=== PATIENT | male | born 1965 | race Caucasian/White ===

== ENCOUNTER 2016-06-20 23:35 | Emergency (ER) | payer OTHER ==
--- NOTE | 2016-07-01 20:32 | ER ---
ADMIT: 06/20/2016 RM/LOC: ER [facility] MR#: [id number] [facility] [address] [place] [id number] [address] [place] [address] Emergency Room Report SEX: M AGE: 50 : 1965 DATE: 06/20/2016 CHIEF COMPLAINT: Low blood sugar. HISTORY OF PRESENT ILLNESS: The patient is a 50-year-old male with insulin- dependent diabetes, comes in for concerns of difficulty getting his blood sugar to come up this evening. He notes that he did not remember taking his insulin at lunchtime, and before he had dinner this evening, he took 32 units of his regular insulin. He calculates his carbs and doses himself with regular insulin 3 times a day with meals and also uses Lantus in the morning and the evening. He states that he was asleep in bed and his checked on him and he was diaphoretic, so she tried to wake him up and he was very slow to wake up and seemed a little confused, so she checked his blood sugar and it was 40. Over the next hour to hour and a half, they tried to get him to eat and drink. His blood sugar went up to 60 and it came back down to 50. Because they had some difficulty getting it to come up, they did bring him in to get checked out. He denies any recent illness. He does not have any pain at this time and states he is feeling somewhat better than he was an hour to two. He feels better than he did an hour ago. REVIEW OF SYSTEMS: Denies chest pain, abdominal pain, nausea, vomiting, change in bowel or bladder function. PAST MEDICAL HISTORY: Significant for insulin-dependent diabetes, asthma, BPH, hypertension. MEDICATIONS: See nurse's note. ALLERGIES: NONE. SOCIAL HISTORY: Denies smoking or drug use. He does use alcohol socially. PHYSICAL EXAMINATION: GENERAL: The patient is alert, oriented, in no distress. HEENT: Head is atraumatic. Pupils are equal, round, and reactive to light. HEART: Regular rate and rhythm. LUNGS: Clear to auscultation. ABDOMEN: Soft. SKIN: Warm and dry. He is not diaphoretic. He has good pulses in all 4 extremities. No skin lesions or rashes. VITAL SIGNS: It is noted he is hypothermic, 92 initially, and on recheck is 93.5. EMERGENCY DEPARTMENT COURSE: While patient was in the ER, we did check his blood sugar shortly after arrival and it was 84. While he was here, we had him eat a sandwich, have some peanut butter. He had a couple of orange ADMIT: 06/20/2016 RM/LOC: ER [facility] MR#: [id number] [id number] [address] [place] [address] Emergency Room Report SEX: M AGE: 50 : 1965 juices. A recheck of his blood sugar approximately an hour after initial was 126. He was feeling better. He feels okay going home. At this point, he will be discharged home to check his blood sugars regularly, and he is instructed that in the short term, I would like to have him run high on his blood sugars concerning he was hypoglycemic earlier this evening. He is to follow up with Dr. Limon if he is having any continued difficulty keeping his blood sugars controlled and he is to return to the ER for any concerning symptoms. DIAGNOSES: 1. Hypoglycemia. 2. Hypothermia. 3. Insulin-dependent diabetes. Gary Paredes MD/ [place] JOB #: [id number] CC: Gary Paredes MD, Attending Physician
== END 2016-06-21 01:27 | disposition home or self-care (01) ==
LOC: ER 23:35
DX: E11.649 Type 2 diabetes mellitus with hypoglycemia without coma (principal); T68.XXXA Hypothermia, initial encounter; I10 Essential (primary) hypertension; J45.909 Unspecified asthma, uncomplicated